=== PATIENT | female | born 1980 | race Caucasian/White ===

== ENCOUNTER 2017-09-12 21:56 | Emergency (ER) | payer OTHER ==
[~2017-09-12] VITALS: Ht 154.9 cm; Wt 78.5 kg
[~2017-09-12 21:56] MED LIST: ALBU90OI INH; Flonase 0.05% N16 GM; Lovastatin10 MG PO; METR250 PO; Mucinex600 MG PO; Percocet 5-3251 EACH PO
[2017-09-12] MEDS ORDERED: PSEU120ER PO (22:46)
== END 2017-09-12 23:13 | disposition home or self-care (01) ==
LOC: ER 21:56
DX: R09.81 Nasal congestion (principal); J45.909 Unspecified asthma, uncomplicated; E78.00 Pure hypercholesterolemia, unspecified; Z79.51 Long term (current) use of inhaled steroids; Z79.899 Other long term (current) drug therapy
CPT/HCPCS: 99282

== ENCOUNTER 2018-10-04 01:49 | Emergency (ER) | payer OTHER ==
[~2018-10-04] VITALS: Ht 154.9 cm; Wt 69.8 kg
[~2018-10-04 01:49] MED LIST changes: +CEPH500 PO; +PSEU120ER PO; +Zofran Odt4 MG SL
[2018-10-04] MEDS ORDERED: Pseudoephedrine30 MG PO (02:53)
[2018-10-04] MEDS ORDERED: IBUP600 PO (02:53)
== END 2018-10-04 03:01 | disposition home or self-care (01) ==
LOC: ER 01:49
DX: J01.90 Acute sinusitis, unspecified (principal); Z88.0 Allergy status to penicillin; G43.909 Migraine, unspecified, not intractable, without status migrainosus
CPT/HCPCS: 99283

== ENCOUNTER → 2019-12-07 | Outpatient (CLI) | payer OTHER ==
[~2019-12-07] MED LIST changes: +IBUP600 PO; +Pseudoephedrine30 MG PO
== END ==
LOC: LAB SHORT 09:09 → LAB EV 09:09
DX: N39.0 Urinary tract infection, site not specified (principal)
CPT/HCPCS: 87077; 87086; 87186

== ENCOUNTER 2020-10-21 07:23 | Emergency (ER) | payer OTHER ==
[~2020-10-21] VITALS: Ht 149.9 cm; Wt 69.0 kg
[2020-10-21] MEDS ORDERED: IBUP600 PO (10:59)
== END 2020-10-21 11:30 | disposition home or self-care (01) ==
LOC: ER 07:23
DX: M54.32 Sciatica, left side (principal); Z86.16 Personal history of COVID-19; Z88.0 Allergy status to penicillin
CPT/HCPCS: 72170; 96372; 99282; A9270; J1885

== ENCOUNTER → 2020-12-04 | Outpatient (CLI) | payer BC, OTHER ==
[2020-12-05 14:10] LABS: HPV 16 Negative (Negative); HPV 18 Negative (Negative); HPV OTHER HR TYPES Negative (Negative)
== END | disposition home or self-care (01) ==
LOC: LAB 16:52 → LAB SHORT 16:52
PROVIDERS: Family Medicine
DX: Z01.419 Encounter for gynecological examination (general) (routine) without abnormal findings (principal)
CPT/HCPCS: 87624; G0123

== ENCOUNTER 2022-04-24 06:41 | Day surgery (SDC) | payer OTHER ==
[~2022-04-24] VITALS: Ht 152.4 cm; Wt 75.4 kg
[2022-04-24] MEDS ORDERED: MAGNESIUM OXID500 MG (06:55)
[2022-04-24] MEDS ORDERED: ALBU90OI (06:55)
[2022-04-24] MEDS ORDERED: Cyclobenzaprine5 MG (06:55)
[2022-04-24] MEDS ORDERED: CHLO25B (06:55)
[2022-04-24] MEDS ORDERED: RIZATRIPTAN10 MG (06:56)
[2022-04-24] MEDS ORDERED: ERGO400 (06:56)
[2022-04-24] MEDS ORDERED: VALA500 (06:56)
[2022-04-24] MEDS ORDERED: TOPI25 (06:56)
== END 2022-04-24 08:40 | disposition home or self-care (01) ==
LOC: ORSCSDS 06:41
PROVIDERS: Internal Medicine Gastroenterology
PROC: 0DB68ZX Excision of Stomach, Via Natural or Artificial Opening Endoscopic, Diagnostic (ICD-10-PCS; principal; 2022-04-24 08:00)
PROC: 0DB58ZX Excision of Esophagus, Via Natural or Artificial Opening Endoscopic, Diagnostic (ICD-10-PCS; principal; 2022-04-24 08:00)
DX: R13.10 Dysphagia, unspecified (principal); K21.9 Gastro-esophageal reflux disease without esophagitis; J45.909 Unspecified asthma, uncomplicated; K59.09 Other constipation; K20.90 Esophagitis, unspecified without bleeding; K29.70 Gastritis, unspecified, without bleeding; K44.9 Diaphragmatic hernia without obstruction or gangrene; Z79.899 Other long term (current) drug therapy
CPT/HCPCS: 82947; 88305; J2704; J7120

== ENCOUNTER → 2022-07-10 | Outpatient (CLI) | payer OTHER ==
[~2022-07-10] MED LIST changes: +ALBU90OI; +CHLO25B; +Cyclobenzaprine5 MG; +ERGO400; +MAGNESIUM OXID500 MG; +RIZATRIPTAN10 MG; +TOPI25; +VALA500
== END | disposition home or self-care (01) ==
LOC: LAB 17:00 → LAB SHORT 17:00
DX: R31.29 Other microscopic hematuria (principal)
CPT/HCPCS: 87086

== ENCOUNTER 2022-07-20 12:40 | Emergency (ER) | payer OTHER ==
[~2022-07-20] VITALS: Ht 152.4 cm; Wt 77.1 kg
[2022-07-20 12:52] VITALS: BP 167/114
== END 2022-07-20 13:38 | disposition home or self-care (01) ==
LOC: ER 12:40
DX: S76.312A Strain of muscle, fascia and tendon of the posterior muscle group at thigh level, left thigh, initial encounter (principal); X58.XXXA Exposure to other specified factors, initial encounter; E78.00 Pure hypercholesterolemia, unspecified; J45.909 Unspecified asthma, uncomplicated; G43.909 Migraine, unspecified, not intractable, without status migrainosus
CPT/HCPCS: 90471; 90714; 96372; 99283-25; J1885

== ENCOUNTER 2022-10-30 11:53 | Emergency (ER) | payer OTHER ==
[~2022-10-30] VITALS: Ht 154.9 cm; Wt 73.9 kg
[2022-10-30 12:03] VITALS: BP 138/107
[2022-10-30] MEDS ORDERED: RIZATRIPTAN10 MG SL (12:06)
[2022-10-30] MEDS ORDERED: OXYC5 PO (12:06)
== END 2022-10-30 15:42 | disposition home or self-care (01) ==
LOC: ER 11:53
DX: K64.5 Perianal venous thrombosis (principal); J45.909 Unspecified asthma, uncomplicated; E78.00 Pure hypercholesterolemia, unspecified; Z88.0 Allergy status to penicillin
CPT/HCPCS: 46083; 99282-25

== ENCOUNTER 2023-11-05 21:29 | Emergency (ER) | payer OTHER ==
[~2023-11-05] VITALS: Ht 152.4 cm; Wt 74.8 kg
[~2023-11-05 21:29] MED LIST changes: +OXYC5 PO; +RIZATRIPTAN10 MG SL
[2023-11-05 22:01] LABS: BASOPHILS ABSOLUTE AUTO 0.02 K/mm3 (0.00-0.23); BASOPHILS PERCENT AUTO 0 % (0-2); EOSINOPHILS ABSOLUTE AUTO 0.47 K/mm3 (0.00-0.68); EOSINOPHILS PERCENT AUTO 4 % (0-6); Hematocrit 38.2 % (33.0-51.0); Hemoglobin 13.2 g/dL (11.5-16.0); IMMATURE GRAN ABSOLUTE AUTO 0.03 K/mm3 (0.00-0.10); IMMATURE GRAN PERCENT AUTO 0 % (0-1); LYMPHOCYTES ABSOLUTE AUTO 1.24 K/mm3 (0.84-5.20); LYMPHOCYTES PERCENT AUTO 11 % (21-46); MONOCYTES ABSOLUTE AUTO 0.58 K/mm3 (0.16-1.47); MONOCYTES PERCENT AUTO 5 % (4-13); Mean Corpuscular HGB 29.5 pg (26.0-34.0); Mean Corpuscular HGB Conc 34.6 g/dL (31.5-36.5); Mean Corpuscular Volume 86 fL (80-100); Mean Platelet Volume 10.4 fL (9.1-12.4); NEUTROPHILS ABSOLUTE AUTO 9.08 K/mm3 (1.96-9.15); NEUTROPHILS PERCENT AUTO 79 % (41-73); Platelet Count 316 K/mm3 (150-400); RDW Coefficient Variation 13.2 % (11.7-14.2); RDW Standard Deviation 40.8 fL (35.1-46.3); Red Blood Cell Count 4.47 M/mm3 (3.80-5.20); White Blood Cell Count 11.42 K/mm3 (4.00-11.30)
[2023-11-05 22:28] LABS: Albumin, Blood 3.5 g/dL (3.4-5.0); Bilirubin, Total 0.6 mg/dL (0.1-1.0); Bun/Creatinine Ratio 14.2 (12.0-20.0); Calcium, Blood 8.5 mg/dL (8.5-10.1); Creatinine, Blood 0.77 mg/dL (0.40-1.00); Globulin, Blood 3.5 g/dL (2.2-4.0); Potassium, Blood 3.4 mmol/L (3.5-5.5)
[2023-11-05] MEDS ORDERED: TOPI50 PO (23:20)
[2023-11-06 00:30] VITALS: BP 116/77
== END 2023-11-06 00:35 | disposition home or self-care (01) ==
LOC: ER 21:29
PROVIDERS: Student in an Organized Health Care Education/Training Program
DX: R07.89 Other chest pain (principal); J45.909 Unspecified asthma, uncomplicated; E78.00 Pure hypercholesterolemia, unspecified; G43.909 Migraine, unspecified, not intractable, without status migrainosus; Z88.0 Allergy status to penicillin
CPT/HCPCS: 71046; 80053; 84484; 85025; 93005; 93010; 99285-25

== ENCOUNTER → 2024-08-13 | Outpatient (CLI) | payer OTHER ==
[~2024-08-13] MED LIST changes: +TOPI50 PO
[2024-08-20 07:26] LABS: HPV HIGH RISK BY TMA Not Detected; HPV SOURCE Cervical/Vag
== END | disposition home or self-care (01) ==
LOC: LAB 09:42 → LAB SHORT 09:42
PROVIDERS: Obstetrics & Gynecology
DX: Z01.419 Encounter for gynecological examination (general) (routine) without abnormal findings (principal)
CPT/HCPCS: 87624; G0123

== ENCOUNTER → 2024-10-20 | Outpatient (CLI) | payer OTHER ==
[2024-10-20 15:11] LABS: Source, Urine Clean Catch
[2024-10-20 15:49] LABS: Bilirubin, Urine Neg (Neg); Color, Urine Yellow (P-Yellow); Glucose Qualitative, Urine Neg (Neg); Ketones, Urine Neg (Neg); Leukocyte Esterase, Urine Neg (Neg); Protein, Urine 1+ (Neg); Specific Gravity, Urine 1.005 (1.003-1.022); Urobilinogen, Urine NORM (Normal)
[2024-10-20 17:20] LABS: BASOPHILS ABSOLUTE AUTO 0.03 K/mm3 (0.00-0.23); BASOPHILS PERCENT AUTO 1 % (0-2); EOSINOPHILS ABSOLUTE AUTO 0.29 K/mm3 (0.00-0.68); EOSINOPHILS PERCENT AUTO 5 % (0-6); Hematocrit 39.1 % (33.0-51.0); Hemoglobin 12.8 g/dL (11.5-16.0); IMMATURE GRAN ABSOLUTE AUTO 0.02 K/mm3 (0.00-0.10); IMMATURE GRAN PERCENT AUTO 0 % (0-1); LYMPHOCYTES ABSOLUTE AUTO 2.22 K/mm3 (0.84-5.20); LYMPHOCYTES PERCENT AUTO 34 % (21-46); MONOCYTES ABSOLUTE AUTO 0.47 K/mm3 (0.16-1.47); MONOCYTES PERCENT AUTO 7 % (4-13); Mean Corpuscular HGB Conc 32.7 g/dL (31.5-36.5); Mean Corpuscular Volume 89 fL (80-100); NEUTROPHILS ABSOLUTE AUTO 3.42 K/mm3 (1.96-9.15); NEUTROPHILS PERCENT AUTO 53 % (41-73); NRBC ABSOLUTE 0.00 K/mm3 (0.00-0.02); NRBC Auto 0.0 /100 WBC (0.0-0.2); Platelet Count 325 K/mm3 (150-400); RDW Coefficient Variation 13.5 % (11.7-14.2); RDW Standard Deviation 43.8 fL (35.1-46.3)
[2024-10-20 18:30] LABS: Anion Gap 4.0 mmol/L (3-11); Blood Urea Nitrogen 14.0 mg/dL (8-24); CO2, Blood 24.0 mmol/L (21-32); Calcium, Blood 8.8 mg/dL (8.5-10.1); Chloride, Blood 110.0 mmol/L (98-108); Creatinine, Blood 0.85 mg/dL (0.40-1.00); Glucose, Blood 109.0 mg/dL (70-99); Potassium, Blood 3.9 mmol/L (3.5-5.5); Sodium, Blood 134.0 mmol/L (136-145)
== END ==
LOC: LAB SHORT 14:56 → LAB 14:56
PROVIDERS: Obstetrics & Gynecology
DX: Z01.818 Encounter for other preprocedural examination (principal)
CPT/HCPCS: 36415; 80048; 81001; 85025; 86850; 86900; 86901

== ENCOUNTER 2024-11-01 06:09 | Day surgery (SDC) | payer OTHER ==
[~2024-11-01] VITALS: Ht 152.4 cm; Wt 70.5 kg
[2024-11-01] VITALS (16 sets, daily range): BP systolic 111–138; BP diastolic 64–82
[~2024-11-01 06:09] MED LIST changes: +FOCALIN PO; +HYOS.125 SL; +IBUP800 PO; +MINO2.5 PO; +OXAYDO5 M1 PO; +RIZATRIPTAN1014 PO; +VALA500 PO
[2024-11-01] MEDS ORDERED: CeFAZolin Sodium 2,000 MG in NS 100 ML IV SCH (06:25)
[2024-11-01] MEDS ORDERED: Bupivacaine 0.5% HCl 5 MG/ML 30MLVIAL ONE (07:14)
[2024-11-01] MEDS ORDERED: FentaNYL Citrate 50 MCG/ML 2 ML Injection ONE ×4 (07:18→11:14)
--- NOTE | 2024-11-01 07:18 | NUR ---
Ambulatory in Day Surgery. History, Chart, Medications and Allergies reviewed before start of procedure. Lungs clear T/O to Auscultation. Patient confirms NPO status and agrees with scheduled surgery. Pre-Op teaching done. Pt verbalizes understanding. Patient States Post-Procedure ride home has been arranged. Patient reports completing Chlorhexadine shower X2 prior to admission to hospital.
[2024-11-01] MEDS ORDERED: Rocuronium Bromide 10 MG/ML 5ML Injection IV ONE ×3 (07:20→10:47)
[2024-11-01] MEDS ORDERED: Albuterol 2.5 MG/3 ML VIAL INH PRN (07:30)
[2024-11-01] MEDS ORDERED: Ondansetron HCl 2 MG / ML 2ML Vial IV PRN ×2 (07:30→11:45)
[2024-11-01] MEDS ORDERED: FentaNYL Citrate 50 MCG/ML 2 ML Injection IV PRN ×2 (07:30→11:45)
[2024-11-01] MEDS ORDERED: Morphine Sulfate 4 MG/1 ML Injection IV PRN (07:35)
[2024-11-01] MEDS ORDERED: Phenylephrine HCl 100 MCG/ML-NS 10MLSYR (1MG/10ML) ONE (07:38)
[2024-11-01] MEDS ORDERED: Dexamethasone Sod Phos 10 MG/ML 1ML VIAL ONE (07:41)
--- NOTE | 2024-11-01 08:04 | NUR ---
11/01/24 0804 Mark Rodriguez REDDEND SKIN NOTED ON PATIENTS RIGHT FLANK, PATIENT STATED FROM [place].
[2024-11-01] MEDS ORDERED: Sugammadex Sodium 200 MG/2ML SDV (100 MG/ML) ONE (10:37)
[2024-11-01] MEDS ORDERED: Ondansetron HCl 2 MG / ML 2ML Vial ONE (10:37)
[2024-11-01] MEDS ORDERED: Ketorolac Tromethamine 30mg Vial IV SCH (12:00)
[2024-11-01] MEDS ORDERED: Ketorolac Tromethamine 30mg Vial ONE (12:05)
[2024-11-01] MEDS ORDERED: Morphine Sulfate 4 MG/1 ML Injection ONE (12:11)
--- NOTE | 2024-11-01 12:59 | NUR ---
ARRIVAL ARRIVES TO ROOM 210 S/P ROBOTIC LAP HYSTER ON GURNEY. PT A/O X4. PAIN IS TOLERABLE, NO N/V. LAP SITES X4 WITH A SMALL TRANSVERSE INCISIONAL SITE ALL INTACT, NO DRAINAGE. NO VAG BLEEDING. TAKING SIPS OF WATER. SPOUSE AT BEDSIDE. VSS.
--- NOTE | 2024-11-01 18:42 | NUR ---
SHIFT SUMMARY PT A&OX4. PT HERE FOR EXTENDED RECOVERY FROM HYSTERECTOMY. PT HAS 5 LAP SITES. SITES INTACT. PT WEARING PAD AND ATTENDS. REPORTS MINIMAL BLOOD ON PAD. PT EATS ADEQUATE. PT REPORTS ABD PAIN. PT REPORTS CHRONIC NAUSEA. PT HAS ICE PACK OVER ABD. PT REPORTS ICE PACK IMPROVES PAIN AND NAUSEA. PT REPORTS "DOESN'T NEED MEDICATION FOR NAUSEA." PT VOIDING ADEQUATE POST SURGERY. PT IS A SBA DUE TO POST OP REPORTING "DIZZINESS WITH AMBULATION" PT HASNT REPORTED DIZZINESS SINCE. DR. POOLE CAME BY THIS AFTERNOON. PT REPORTS "WOULD PREFER TO STAY THE NIGHT DUE TO LONG SURGERY, WANT TO STAY JUST INCASE." POST OP VITALS STABLE. PT ON ROOM AIR. PT IN BED, BED IN LOWEST POSITION, CALL LIGHT IN REACH.
--- NOTE | 2024-11-01 20:00 | NUR ---
ASSUMED CARE ASSUMED CARE, BEDSIDE REPORT COMPLETE FROM DAY RN. PT A/OX4 WITH VSS. IS POD 0 S/P HYSTERECOMY. LAP SITES X 5 AND TRANSVERSE INCISION CDI, CLOSED WITH TISSUE ADHESIVE. REPORTS SCANT VAGINAL BLEEDING. DENIES PAIN. IS AMB IND/SBA TO BATHROOM AND UP IN ROOM. ELIZABETH PO INTAKE, DENIES N/V OR NEEDS AT THIS TIME. IV PATENT AND SL. HAS CALL LIGHT IN REACH.
--- NOTE | 2024-11-02 00:07 | NUR ---
UPDATE RN IN ROOM TO MEDICATE PER EMAR. SNACKS PROVIDED PRN. PT ON PHONE. REPORTS SCANT VAGINAL BLEEDING. ABD IN INCISIONS CONTINUE TO BE CDI WITHOUT EXUDATE. PT IS IND IN ROOM. 700ML VOID, LIGHT YELLOW URINE NOTED. REF SCDS. PT DENIES NEEDS. HAS CALL LIGHT IN REACH.
--- NOTE | 2024-11-02 03:53 | NUR ---
SHIFT SUMMARY POD 1 S/P HYSTERECTOMY; TRANSVERSE ABD INCISION AND LAP SITES CDI. PAIN MANAGED PER EMAR. IS VOIDING AND AMB IND. ELIZABETH PO INTAKE, DENIES N/V. SCANT VAGINAL BLEEDING. IV PATENT AND SL. PT CURRENTLY RESTING IN BED WITH EYES CLOSED, RESP EVEN/UNLABORED AND HAS CALL LIGHT IN REACH. PLAN FOR POSSIBLE D/C HOME TODAY. WILL GIVE REPORT TO ONCOMING RN.
[2024-11-02 05:45] VITALS: BP 107/64
[2024-11-02 07:10] VITALS: BP 105/70
--- NOTE | 2024-11-02 10:34 | NUR ---
DISCHARGE NOTE ASSUMED CARE OF PATIENT AT 0700, PATIENT A/OX4, INDEPENDENT IN ROOM. PATIENT REPORTS NO VAGINAL BLEEDING POD1 FROM HYSTERECTOMY. INCISIONS AND LAP SITES WNL, OPEN TO AIR. PATIENT COMLPAINING OF MINIMAL "GAS PAIN". SCHEDULED TYLENOL EFFECTIVE IN MANAGING PATIENT'S PAIN THIS MORNIG. DENIES NAUSEA. IV REMOVED PRIOR TO DISCHARGE. CONTINUOUS PULSE OX REMOVED PRIOR TO DISCHARGE. DISCHARGE INSTRUCTIONS DISCUSSED WITH PATIENT AND HER FAMILY. NO OTHER CONCERNS. PATIENT ASSISTED TO FAMILY VEHCILE VIA WHEELCHAIR BY [facility] STAFF.
== END 2024-11-02 10:30 | disposition home or self-care (01) ==
LOC: ORSCMMR 06:09 → ORD 07:30 → ORSCMMR 07:30 → SURS 12:39 → ORSCMMR 11-02 10:30
PROVIDERS: Obstetrics & Gynecology
PROC: 0UT64ZZ Resection of Left Fallopian Tube, Percutaneous Endoscopic Approach (ICD-10-PCS; principal; 2024-11-01 07:30)
PROC: 0DNW4ZZ Release Peritoneum, Percutaneous Endoscopic Approach (ICD-10-PCS; principal; 2024-11-01 07:30)
PROC: 0UT94ZZ Resection of Uterus, Percutaneous Endoscopic Approach (ICD-10-PCS; principal; 2024-11-01 07:30)
DX: N93.9 Abnormal uterine and vaginal bleeding, unspecified (principal); N99.85 Post endometrial ablation syndrome; D25.9 Leiomyoma of uterus, unspecified; N80.329 Endometriosis of the posterior cul-de-sac, unspecified depth; Z98.891 History of uterine scar from previous surgery; E66.9 Obesity, unspecified; Z68.30 Body mass index [BMI] 30.0-30.9, adult; Z79.899 Other long term (current) drug therapy
CPT/HCPCS: 36415; 86850; 86900; 86901; 88307; 94762; A9270; J0690; J1100; J1885; J2270; J2371; J2405; J2704; J3010; J7120